=== PATIENT | male | born 1990 | race American Indian/Alaskan Native ===

== ENCOUNTER 2017-02-27 14:06 | Emergency (ER) | payer OTHER ==
[2017-02-27] MEDS ORDERED: XYLOCAINE 1%/ EPI 1:100,000 INFILTRATI NR (16:00)
[2017-02-27] MEDS ORDERED: TORADOL IM ONE (17:04)
--- NOTE | 2017-02-27 17:22 | Emergency Department Report ---
ED General Adult HPI - General Chief complaint: Extremity Injury, Lower Stated complaint: LEG PAIN Time Seen by Provider: 02/27/17 15:56 Source: patient, police Mode of arrival: Ambulatory Limitations: No Limitations - History of Present Illness Initial comments: 26-year-old male with no significant past medical history presents to the hospital complains of retained taser michelle and right chest wall. Patient is in police custody. He was tased. Initial taser was removed from the upper/ thoracic back. The taser to the anterior right chest is enlarged into the skin and too painful to remove. After patient was tased his legs buckled and he fell to the ground he complains of right thigh pain. Pain is 10/10 in intensity , aching, constant, worse with movement and standing. - Related Data Previous Rx's Medication Instructions Recorded Last Taken Type Ibuprofen [Motrin] 600 mg PO Q8H PRN #30 tablet 02/27/17 Unknown Rx Allergies Allergy/AdvReac Type Severity Reaction Status Date / Time No Known Allergies Allergy Unverified 02/27/17 15:24 ED Review of Systems ROS: Stated complaint: LEG PAIN Other details as noted in HPI Comment: All other systems reviewed and negative Other: Constitutional: No fevers chills Eyes: No eye pain visual changes ENT: No ear pain or throat pain Neck: Denies pain Respiratory: Denies cough wheezing shortness of breath Cardiovascular: Denies chest pain, palpitations, syncope GI: Denies abdominal pain, nausea, vomiting, diarrhea : Denies dysuria, urinary frequency, or urgency Musculoskeletal: as per hpi Skin: Denies rash, lesions, erythema Neurologic: Denies headache, numbness, weakness Psychiatric: Denies suicidal ideation, hallucinations ED Past Medical Hx - Past Medical History Previous Medical History?: Yes Additional medical history: Right leg pain - Surgical History Past Surgical History?: No - Social History Smoking Status: Current Every Day Smoker Substance Use Type: Marijuana - Medications Home Medications: Home Medications Medication Instructions Recorded Confirmed Last Taken Type Ibuprofen [Motrin] 600 mg PO Q8H PRN #30 tablet 02/27/17 Unknown Rx ED Physical Exam - General Limitations: No Limitations - Other Other exam information: General: No limitations, patient is alert in no acute distress Head exam: Atraumatic, normocephalic Eyes exam: Normal appearance, pupils equal reactive to light, extraocular movements intact ENT: Moist mucous membrane, normal oropharynx Neck exam: Normal inspection, full range of motion, no meningismus nontender Respiratory exam: Clear to auscultation bilateral, no wheezes, rales, crackles Cardiovascular: Normal rate and rhythm, Taser michelle Limon to right anterior chest wall Abdomen: Soft, nondistended, and nontender, with normal bowel sounds, no rebound, or guarding Extremity: Full range of motion normal inspection no deformity, superficial scratches to right anterior thigh. Mild tenderness to quadriceps to palpation. Compartments soft. No pain to knee or hip joint and full range of motion. Back: Normal Inspection, full range of motion, no tenderness Neurologic: Alert, oriented x3, cranial nerves intact, no motor or sensory deficit Psychiatric: normal affect, normal mood Skin: Warm, dry, intact ED Course Vital Signs 02/27/17 15:19 Temperature 98.6 F Pulse Rate 76 Respiratory 18 Rate Blood Pressure 145/90 O2 Sat by Pulse 99 Oximetry - Reevaluation(s) Reevaluation #1: 02/27/17 17:37 Toradol given for pain - Consultations Consultation #1: 02/27/17 17:37 Dr. Bryant contemporary or modern dancer machine pan greaser reviewed EKG. Agrees that findings consistent with repolarization and not ST elevation [place] - Procedure Description Procedures done: Foreign body removal from right chest wall. Area was prepped with Betadine. 3 mL of lidocaine with epi used infiltrate the skin. Once skin was anesthetized, firm pressure was needed to remove Taser michelle intact and no bleeding after Taser michelle removal. Patient tolerated procedure well ED Medical Decision Making - EKG Data -: EKG Interpreted by Me (sinus 74 sinus arrhythmia inferior and anterolateral ST elevation, repol) - EKG Data When compared to previous EKG there are: previous EKG unavailable - Medical Decision Making Plan to discharge patient home. No chest pain or signs of arrhythmia at this time. Michelle was successfully removed. - Differential Diagnosis foreign body, rhabdo, sprain Critical Care Time: No Critical care attestation.: If time is entered above; I have spent that time in minutes in the direct care of this critically ill patient, excluding procedure time. ED Disposition Clinical Impression: Taser injury, Hx of retained foreign body fully removed, Thigh sprain Disposition: DISCHARGED TO HOME OR SELFCARE Is pt being admited?: No Does the pt Need Aspirin: No Condition: Stable Instructions: Soft Tissue Foreign Body (ED), Muscle Strain (ED) Additional Instructions: Follow-up with your primary care doctor with doctor or clinic provided. Keep wound clean. You may apply topical antibiotics ointment. Return if symptoms worsen. Prescriptions: Ibuprofen [Motrin] 600 mg PO Q8H PRN #30 tablet PRN Reason: Pain Referrals: PRIMARY CAREMD [Primary Care Provider] - 3-5 Days [facility] [Provider Group] - 3-5 Days ALEX RYAN MD [Staff Physician] - 3-5 Days Time of Disposition: 17:40
[2017-02-27 18:04] VITALS: BP 151/89
== END 2017-02-27 18:04 | disposition home or self-care (01) ==
LOC: ED 14:06
DX: S20.351A Superficial foreign body of right front wall of thorax, initial encounter (principal); S70.311A Abrasion, right thigh, initial encounter; S83.91XA Sprain of unspecified site of right knee, initial encounter; X58.XXXA Exposure to other specified factors, initial encounter; Y93.9 Activity, unspecified; Y92.89 Other specified places as the place of occurrence of the external cause; Y99.9 Unspecified external cause status
CPT/HCPCS: 93005; 93010; 96372; 99283; J1885